=== PATIENT | male | born 1955 | race Caucasian/White ===

== ENCOUNTER 2021-04-07 06:48 | Day surgery (SDC) | payer OTHER, MEDICARE, SELFPAY ==
[~2021-04-07] VITALS: Ht 175.3 cm; Wt 120.2 kg
[2021-04-07] MEDS ORDERED: CEFAZOLIN SOD 1 GM in D5W 50 ML IV ONE (07:00)
[2021-04-07] MEDS ORDERED: DEXAMETHASONE SOD PHOSPHATE 4 MG/ML VIAL IVP ONE (10:33)
[2021-04-07] MEDS ORDERED: ONDANSETRON HCL 4 MG/2 ML VIAL IVP ONE (10:33)
[2021-04-07] MEDS ORDERED: DESFLURANE 15 MIN GAS INH ONE (10:33)
[2021-04-07] MEDS ORDERED: ROCURONIUM BROMIDE 10 MG/ML (ZEMURON) IV ONE (10:33)
[2021-04-07] MEDS ORDERED: PROPOFOL 200MG/ 20ML VIAL (DIPRIVAN) IV ONE (10:33)
[2021-04-07] MEDS ORDERED: LR 1,000 ML IV.SOLN IV ONE (10:33)
[2021-04-07] MEDS ORDERED: CEFAZOLIN 2 GM IVPB PREMIX 50 ML IV ONE (10:33)
[2021-04-07] MEDS ORDERED: fentaNYL CITRATE/PF 100 MCG/2 ML AMP IVP ONE (10:33)
[2021-04-07] MEDS ORDERED: MIDAZOLAM HCL 5 MG/5 ML VIAL IVP ONE (10:33)
[2021-04-07] MEDS ORDERED: NS IRRIG SOLN 1000 ML IR ONE (10:33)
[2021-04-07] MEDS ORDERED: SUGAMMADEX SODIUM 200 MG/2 ML VIAL IV ONE (10:33)
[2021-04-07] MEDS ORDERED: BUPIVACAINE /PF 0.25% 30 ML VIAL INJ ONE (10:33)
[2021-04-07] MEDS ORDERED: HYDROmorphone 1 MG/ML INJ. CARTRIDGE IVP PRN ×3 (11:15→12:45)
[2021-04-07] MEDS ORDERED: hydrALAZINE HCL 20 MG/ML VIAL IVP PRN (11:15)
[2021-04-07] MEDS ORDERED: METOCLOPRAMIDE HCL 10 MG/2 ML VIAL IVP PRN (11:15)
[2021-04-07] MEDS ORDERED: MEPERIDINE HCL/PF 25 MG/ML DISP.SYRIN IVP PRN (11:15)
[2021-04-07] MEDS ORDERED: LR 1,000 ML IV SCH (11:15)
[2021-04-07] MEDS ORDERED: LABETALOL 100 MG/ 20ML VIAL IVP PRN (11:15)
[2021-04-07] MEDS ORDERED: MIDAZOLAM HCL 2 MG/2 ML VIAL (VERSED) IVP PRN (11:15)
[2021-04-07] MEDS ORDERED: D5/0.45 NS 1,000 ML IV SCH (12:45)
[2021-04-07] MEDS ORDERED: HYDROcodone/ACETAMIN 5-325 MG TAB (NORCO/ VICODIN) PO PRN ×2 (12:45)
[2021-04-07] MEDS ORDERED: HYDROmorphone 1 MG/ML INJ. CARTRIDGE ONE (14:23)
[2021-04-07 18:39] VITALS: BP_SYST 141
== END 2021-04-07 15:55 | disposition home or self-care (01) ==
LOC: SDS 06:48 → SMU 06:52 → SDS 15:55
PROVIDERS: ATTEND Colon & Rectal Surgery
DX: K42.0 Umbilical hernia with obstruction, without gangrene (principal); R22.2 Localized swelling, mass and lump, trunk; I10 Essential (primary) hypertension; E66.9 Obesity, unspecified; Z98.61 Coronary angioplasty status; Z79.899 Other long term (current) drug therapy; Z20.822 Contact with and (suspected) exposure to COVID-19
CPT/HCPCS: 21933; 36415; 49587; 87426; 88302; 88304; C1781; J0690 ×2; J1100; J1170; J2250; J2405; J2704; J3010; J3490 ×2; J7060; J7120; U0003; 88305

== ENCOUNTER 2022-12-14 06:00 | Day surgery (SDC) | payer OTHER, MEDICARE ==
[~2022-12-14] VITALS: Ht 175.3 cm; Wt 115.8 kg
[2022-12-14] MEDS ORDERED: LR 1,000 ML IV SCH ×2 (07:00→08:45)
[2022-12-14] MEDS ORDERED: CEFAZOLIN SOD 2 GM in D5W 50 ML IV ONE (07:00)
[2022-12-14] MEDS ORDERED: LR 1,000 ML IV.SOLN IV ONE (07:33)
[2022-12-14] MEDS ORDERED: DESFLURANE 15 MIN GAS INH ONE (07:33)
[2022-12-14] MEDS ORDERED: cefOXitin SODIUM 2 GM/VIAL (MEFOXIN) ONE (07:33)
[2022-12-14] MEDS ORDERED: fentaNYL CITRATE/PF 100 MCG/2 ML AMP ONE (07:33)
[2022-12-14] MEDS ORDERED: SUGAMMADEX SODIUM 200 MG/2 ML VIAL IV ONE (07:33)
[2022-12-14] MEDS ORDERED: NS IRRIG SOLN 1000 ML IR ONE (07:33)
[2022-12-14] MEDS ORDERED: PROPOFOL 200MG/ 20ML VIAL (DIPRIVAN) IV ONE (07:33)
[2022-12-14] MEDS ORDERED: NS 100 ML BAG ONE (07:33)
[2022-12-14] MEDS ORDERED: ROCURONIUM BROMIDE 10 MG/ML (ZEMURON) ONE (07:33)
[2022-12-14] MEDS ORDERED: KETOROLAC TROMETHAMINE 30 MG VIAL ONE (07:33)
[2022-12-14] MEDS ORDERED: BUPIVACAINE /PF 0.25% 30 ML VIAL INJ ONE (07:33)
[2022-12-14] MEDS ORDERED: LIDOCAINE PF 2%, 40 MG/2 ML AMP INJ ONE (07:33)
[2022-12-14] MEDS ORDERED: MIDAZOLAM HCL/PF 2 MG/2 ML SYRINGE ONE (07:33)
[2022-12-14] MEDS ORDERED: DEXAMETHASONE SOD PHOSPHATE 4 MG/ML VIAL ONE (07:33)
[2022-12-14] MEDS ORDERED: ONDANSETRON HCL 4 MG/2 ML VIAL ONE (07:33)
[2022-12-14] MEDS ORDERED: ACETAMINOPHEN I.V. 1000 MG 100 ML IV ONE (07:34)
[2022-12-14] MEDS ORDERED: BUPIVACAINE LIPOSOME/PF 266 MG/20 ML VIAL INFIL ONE (07:35)
[2022-12-14] MEDS ORDERED: cefOXitin SODIUM 2 GM in D5W 100 ML IV ONE (07:45)
[2022-12-14] MEDS ORDERED: FAMO-279 PO (08:18)
[2022-12-14] MEDS ORDERED: CYCL10TA24 PO (08:18)
[2022-12-14] MEDS ORDERED: VALS80TA2 PO (08:18)
[2022-12-14] MEDS ORDERED: ASPI-859 PO (08:18)
[2022-12-14] MEDS ORDERED: CARV3.1246 PO (08:18)
[2022-12-14] MEDS ORDERED: AMYL1CAP54 PO (08:18)
[2022-12-14] MEDS ORDERED: ROSU40TA PO (08:18)
[2022-12-14] MEDS ORDERED: MEPERIDINE HCL/PF 25 MG/ML DISP.SYRIN IVP PRN (08:45)
[2022-12-14] MEDS ORDERED: HYDROmorphone 1 MG/ML INJ. CARTRIDGE IVP PRN ×3 (08:45→09:45)
[2022-12-14] MEDS ORDERED: LABETALOL 100 MG/ 20ML VIAL IVP PRN (08:45)
[2022-12-14] MEDS ORDERED: METOCLOPRAMIDE HCL 10 MG/2 ML VIAL IVP PRN (08:45)
[2022-12-14] MEDS ORDERED: hydrALAZINE HCL 20 MG/ML VIAL IVP PRN (08:45)
[2022-12-14] MEDS ORDERED: ACETAMINOPHEN 325 MG TABLET PO PRN ×2 (09:45→17:45)
[2022-12-14] MEDS ORDERED: ONDANSETRON HCL 4 MG/2 ML VIAL IVP PRN (09:45)
[2022-12-14] MEDS ORDERED: HYDROcodone/ACETAMIN 5-325 MG TAB (NORCO/ VICODIN) PO PRN ×2 (09:45)
[2022-12-14 11:00] VITALS: BP_SYST 145; PULSE 86; RESP 18; TEMP 97.5; O2SAT 93
[2022-12-14 11:30] VITALS: BP_SYST 145; PULSE 86; RESP 18; TEMP 97.5
[2022-12-14 13:37] VITALS: O2SAT 93
[2022-12-14] MEDS: D5/0.45 NS 1,000 ML IV SCH (14:30)
[2022-12-14] MEDS ORDERED: TEMAZEPAM 15 MG CAPSULE PO PRN (17:45)
[2022-12-14] MEDS: LIPASE/PROTEASE/AMYLASE 1 CAP PO SCH (18:00)
[2022-12-14 20:00] VITALS: BP_SYST 122; PULSE 89; RESP 16; TEMP 97.9; O2SAT 95; O2SAT 98
[2022-12-14] MEDS ORDERED: FAMOTIDINE PF 20 MG/2 ML VIAL IVP SCH (21:00)
[2022-12-14] MEDS ORDERED: CYCLOBENZAPRINE HCL 10 MG TABLET (FLEXERIL) PO SCH (21:00)
[2022-12-14] MEDS: FAMOTIDINE 20 MG TABLET PO SCH (21:40)
[2022-12-14] MEDS: CARVEDILOL 3.125 MG TABLET (COREG) PO SCH (21:40)
[2022-12-14] MEDS: cefOXitin SODIUM 2 GM in D5W 100 ML IV SCH (21:41)
[2022-12-15] VITALS: BP_SYST 139; PULSE 81; RESP 18; TEMP 97.5; O2SAT 96
[2022-12-15] MEDS: D5/0.45 NS 1,000 ML IV SCH ×2 (00:12→12:13)
[2022-12-15 04:52] LABS: BASOPHILS % (AUTO) 0.2 % (0.0-2.0); EOSINOPHILS % (AUTO) 0.3 % (0.0-4.0); HEMATOCRIT 40.1 % (36-54); HEMOGLOBIN 13.1 g/dL (14.0-18.0); LYMPHOCYTES # (AUTO) 4.2 K/uL (1.0-5.5); LYMPHOCYTES % (AUTO) 32.5 % (20.5-51.5); MEAN CORPUSCULAR HEMOGLOBIN 30 pg (27-31); MEAN CORPUSCULAR HGB CONC 33 % (32-36); MEAN CORPUSCULAR VOLUME 92 fL (79.0-98.0); NEUTROPHILS # (AUTO) 7.7 K/uL (1.8-7.7); PLATELET COUNT (AUTO) 278 K/uL (130-430); RED BLOOD CELL COUNT(AUTO) 4.35 MIL/uL (4.2-6.2); RED CELL DISTRIBUTION WIDTH 13.9 % (9.0-15.0)
[2022-12-15 05:23] LABS: ALBUMIN 3.1 g/dL (3.4-4.8); CALCIUM 8.5 mg/dL (8.4-11.0); CREATININE 0.94 mg/dL (0.55-1.30); PHOSPHORUS 3.6 mg/dL (2.7-4.5); TOTAL PROTEIN, SERUM 7.1 g/dL (6.4-8.3)
[2022-12-15 07:30] VITALS: O2SAT 98
[2022-12-15 08:34] VITALS: BP_SYST 131; PULSE 64; RESP 18; TEMP 97.5
[2022-12-15] MEDS ORDERED: LOSARTAN POTASSIUM 50 MG TABLET (COZAAR) PO SCH (09:00)
[2022-12-15] MEDS ORDERED: ENOXAPARIN SODIUM 30 MG/0.3 ML SYRINGE SUBCUT SCH (09:00)
[2022-12-15] MEDS ORDERED: ASPIRIN 81 MG TABLET(ECOTRIN) PO SCH (09:00)
[2022-12-15] MEDS ORDERED: ATORVASTATIN 20 MG TABLET PO SCH (09:00)
[2022-12-15] MEDS: CARVEDILOL 3.125 MG TABLET (COREG) PO SCH (09:21)
[2022-12-15] MEDS: LIPASE/PROTEASE/AMYLASE 1 CAP PO SCH ×2 (09:22→12:14)
[2022-12-15] MEDS: FAMOTIDINE 20 MG TABLET PO SCH (09:22)
[2022-12-15] MEDS: cefOXitin SODIUM 2 GM in D5W 100 ML IV SCH (09:32)
[2022-12-15 11:42] VITALS: BP_SYST 130; PULSE 62; RESP 18; TEMP 99; O2SAT 99
[2022-12-15 13:35] VITALS: BP_SYST 18; PULSE 64; TEMP 97.5; O2SAT 73
== END 2022-12-15 15:30 | disposition home or self-care (01) ==
LOC: SMU 06:00 → SDS 06:00 → SMU 10:23 → SDS 12-15 15:30
PROVIDERS: ATTEND Colon & Rectal Surgery
DX: K63.5 Polyp of colon (principal); I10 Essential (primary) hypertension; E78.5 Hyperlipidemia, unspecified; G47.33 Obstructive sleep apnea (adult) (pediatric); I25.10 Atherosclerotic heart disease of native coronary artery without angina pectoris; I25.2 Old myocardial infarction; E66.9 Obesity, unspecified; Z95.5 Presence of coronary angioplasty implant and graft; Z79.82 Long term (current) use of aspirin; Z79.899 Other long term (current) drug therapy
CPT/HCPCS: 87081; 97163; 80053; 83735; 84100; 85025; 36415; 97116; 88309; 44238; J3490 ×2; J0694; J1100; J1885; J2001; J3465; J2405; J2704; J3010; J7060; J7120; C1727; J0131; J1650; 88305; C9290; J0690